=== PATIENT | male | born 1990 ===

== ENCOUNTER 2023-11-30 20:38 | Emergency (ER) | payer OTHER, MEDICAID, SELFPAY ==
[2023-11-30 20:39] VITALS: BP 159/112; PULSE 116; RESP 20; TEMP 36.7; O2SAT 99; BMI 23.7
--- NOTE | 2023-11-30 21:01 | ED.MEDCLEAR ---
HPI - Medical Clearance General Chief complaint: Medical Clearance Stated complaint: [facility] Time Seen by Provider: 11/30/23 20:58 Source: patient and police Mode of arrival: Ambulatory History of Present Illness HPI Narrative: 33-year-old gentleman who describes no significant medical history has been drinking out call today and is brought in by police on his way to half-way to be cleared prior to incarceration. There was no evidence of trauma. He does not describe significantly heavy drinking and does not describe any withdrawal symptoms or seizures when he stops drinking. He denies any other recreational drugs and has no other specific complaints. Related Information Home Medications Medication Instructions Recorded Confirmed No Known Home Medications 11/30/23 11/30/23 Allergies Allergy/AdvReac Type Severity Reaction Status Date / Time No Known Drug Allergies Allergy Verified 11/30/23 20:39 Review of Systems Review of Systems Narrative: Pertinent positive and negative findings as per HPI Patient History Social History Smoking Status: Current every day smoker Smoking Status: Current every day smoker alcohol intake frequency: 3 or more drinks per day Alcohol type: wine Substance Use Type: marijuana Exam Initial Vital Signs Initial Vital Signs: Vital Signs Temperature 98.1 F 11/30/23 20:39 Pulse Rate 116 H 11/30/23 20:39 Respiratory Rate 20 11/30/23 20:39 Blood Pressure 159/112 H 11/30/23 20:39 Pulse Oximetry 99 11/30/23 20:39 Oxygen Delivery Method Room Air 11/30/23 20:39 General: Happily intoxicated, somewhat disheveled but in no acute distress. Able to speak in full sentences and participate in history and physical. HEENT: Moist mucous membranes, normal sclera with reactive pupils, Respiratory: Lungs are clear to auscultation, no wheezing no rales no rhonchi. Full and symmetrical air movement Cardiac: Regular rate and rhythm no murmurs no bruits Abdomen: Soft, nontender, good bowel tones, no flank pain Skin: Warm and dry, seborrhea over his scalp and eyebrows Neurologic: Intoxicated but otherwise Grossly neurologically intact with no obvious asymmetries or abnormalities Extremities: No trauma, well perfused Psych: Intoxicated, scattered and tangential speech but can be redirected MDM - Medical Clearance MDM Narrative Medical decision making narrative: 33-year-old gentleman brought in by police. He is slightly intoxicated with police breathalyzer showing .170. Can be redirected, showing no acute abnormalities. History is obtained from patient as well as police officers. He denies any significant medical abnormalities Labs are not indicated today. Exam is benign aside from his redirectable intoxication Discussion: 33-year-old gentleman intoxicated, cleared for medical incarceration with no evidence of secondary issues that would require further workup at this time Discharge Plan Departure Patient Disposition: Home Clinical Impression: Alcohol intoxication Qualifiers: Complication of substance-induced condition: uncomplicated Qualified Code(s): F10.920 - Alcohol use, unspecified with intoxication, uncomplicated Instructions: Alcohol Use Disorder Activity Restrictions/Additional Instructions: You were evaluated in the emergency department You were slightly intoxicated but I found no evidence of significant injuries or suggestion of abnormalities that would require lab work or imaging studies today. You are cleared for incarceration Prescriptions: No Action No Known Home Medications Referrals: Aruna Marshall PA-C [Primary Care Provider] - Stand Alone Forms: Patient Portal/API
[2023-11-30 21:07] VITALS: BP 158/90; PULSE 98; RESP 14; O2SAT 99
== END 2023-11-30 21:09 | disposition home or self-care (01) ==
PROVIDERS: Emergency Provider Emergency Medicine; Family Provider Internal Medicine; PCP Internal Medicine
DX: Z00.8 Encounter for other general examination (principal); F10.920 Alcohol use, unspecified with intoxication, uncomplicated
CPT/HCPCS: 99281